=== PATIENT | female | born 1965 | race Caucasian/White ===

== ENCOUNTER 2019-12-07 20:35 | Emergency (ER) | payer BC ==
[~2019-12-07] VITALS: Ht 160 cm; Wt 81.6 kg
[2019-12-07 20:55] VITALS: BP_SYST 151
--- NOTE | 2019-12-07 21:00 | NUR ---
Patient to ER bed 8 to gown for evaluation. Side rails up. Report given to CLEMENTINE.
--- NOTE | 2019-12-07 21:05 | NUR ---
RECEIVED AND IN ROOM, PT HERE FOR DOG BITE, BLEEDING CONTROLLED. NO DISTRESS,
--- NOTE | 2019-12-07 21:09 | NUR ---
DR ESPANA IN TO ASSESS
--- NOTE | 2019-12-07 21:15 | NUR ---
PT AAO AND AMBULATORY C/O DOG BITE FROM YESTERDAY ON LEFT INDEX FINGER. PT REPORTS WORSENING REDNESS AND SWELLING.
[2019-12-07] MEDS ORDERED: AMOXICILLIN/CLAVULANATE POTASSIUM 875 MG TABLET PO ONE (21:30)
[2019-12-07] MEDS ORDERED: SULFAMETHOXAZOLE/TRIMETHOPR DS 1 TABLET PO ONE (21:30)
[2019-12-07] MEDS ORDERED: IBUPROFEN 800 MG TABLET PO ONE (21:30)
[2019-12-07] MEDS ORDERED: DIPH-TET-PERTUS Vaccine 0.5 ML VIAL (ADACEL) I.M. ONE (22:00)
[2019-12-07 22:40] VITALS: BP_SYST 142
--- NOTE | 2019-12-07 22:40 | NUR ---
Patient given written and verbal discharge instructions and verbalizes understanding. DR. JOVI PORTER MD discussed with patient the results and treatment provided. Patient in stable condition. ID arm band removed. Rx of MOTRIN AND AUGMENTIN given. Patient educated on pain management and to follow up with PMD. Pain Scale 0/10. Opportunity for questions provided and answered. Medication side effect fact sheet provided.
== END 2019-12-07 22:40 | disposition home or self-care (01) ==
LOC: SED 20:35
DX: L03.012 Cellulitis of left finger (principal); E78.5 Hyperlipidemia, unspecified; E03.9 Hypothyroidism, unspecified; I10 Essential (primary) hypertension; W54.0XXA Bitten by dog, initial encounter; Y93.89 Activity, other specified; Y92.89 Other specified places as the place of occurrence of the external cause; Y99.8 Other external cause status
CPT/HCPCS: 73140-TC; 90715; 99284